=== PATIENT | female | born 1960 | race Caucasian/White ===

== ENCOUNTER 2019-02-21 11:39 | Emergency (ER) | payer OTHER, SELFPAY ==
[2019-02-21 11:45] VITALS: BP 168/81; PULSE 52; RESP 18; TEMP 36.3; O2SAT 99
[2019-02-21] MEDS: KETOROLAC 60 MG/2 ML VIAL IM (13:02)
[2019-02-21] MEDS: HYDROCODONE/ACET 5/325 TABLET 1 TAB PO (13:02)
[2019-02-21] MEDS: LIDOCAINE PATCH 1 EACH ADH..PATCH TOP (13:07)
[2019-02-21 13:55] VITALS: BP 132/73; PULSE 56; RESP 17; O2SAT 100
--- NOTE | 2019-02-21 16:14 | ED.BACK ---
HPI - Back Pain/Injury <WARREN Nolen - Last Filed: 02/21/19 16:18> General Chief Complaint: Back Pain/Injury Stated Complaint: Sciatic Pain Time Seen by Provider: 02/21/19 12:36 Source: patient Limitations: no limitations History of Present Illness HPI Narrative: The patient is a 59-year-old female nonsmoker with history of sciatica prevents with a chief complaint of sciatica pain. She states she is from out of town and is having pain on her right side. She states that she cannot take anti-inflammatories due to recent gastric surgery. She states that the pain starts in her right hip goes down to her right knee. She states is very consistent with her sciatica pain. She has been using Tylenol. She states she has been to the walk-in clinic twice, was given injection of Toradol as well as a prescription of steroids. She states she has not felt any improvement. She denies any trauma. Denies any fevers nausea vomiting or diarrhea. She states that she does not have any incontinence of bowel, incontinence of bladder or saddle anesthesia. Related Data Home Medications Medication Instructions Recorded Confirmed atenolol 25 mg tablet 25 mg PO DAILY 02/18/19 02/18/19 fluoxetine 40 mg capsule 40 mg PO DAILY 02/18/19 02/18/19 omeprazole 20 mg capsule,delayed 20 mg PO DAILY 02/18/19 02/18/19 release Previous Rx's Medication Instructions Recorded prednisone 20 mg tablet 20 mg PO DAILY 10 Days #14 tab 02/18/19 cyclobenzaprine 10 mg tablet 10 mg PO BID PRN #10 tab 02/20/19 hydrocodone-acetaminophen [[place]] 1 tab PO Q4-6H PRN #10 tab 02/21/19 lidocaine 1 patch TOP DAILY #15 each 02/21/19 Allergies Allergy/AdvReac Type Severity Reaction Status Date / Time No Known Drug Allergies Allergy Verified 02/18/19 10:41 Review of Systems <WARREN Nolen - Last Filed: 02/21/19 16:18> Review of Systems GENERAL: Denies chills, fatigue, malaise, fever, sweats. HEENT: Denies sinus pain, ear pain, sore throat, difficulty swallowing, dizziness. RESPIRATORY: Denies dyspnea, cough, wheezing, hemoptysis, sputum. CARDIOVASCULAR: Denies chest pain, palpitations, orthopnea, edema, GASTROINTESTINAL: Denies nausea, vomiting, abdominal pain, diarrhea, constipation, melena. : Denies dysuria, frequency, incontinence, hematuria, urinary retention. MUSCULOSKELETAL: See HPI SKIN: Denies rash, skin lesions, or other NEUROLOGIC: Denies weakness, headache, numbness, change in speech, confusion, seizures, incoordination. PSYCHIATRIC: No concerning psychosocial issues. 12 point review of systems is negative except for those stated above PFSH <WARREN Nolen - Last Filed: 02/21/19 16:18> Social History Smoking Status: Never smoker Social History Smoking Status: Never smoker Exam <WARREN Nolen - Last Filed: 02/21/19 16:18> Narrative Exam Narrative: GENERAL: This is a well-nourished, well-developed patient, appears uncomfortable HEAD: Atraumatic. Normocephalic. No temporal or scalp tenderness. EYES: Pupils equal round and reactive. Extraocular motions intact. No scleral icterus. No injection or drainage. ENT: Nose without bleeding, purulent drainage or septal hematoma. Throat without erythema, tonsillar hypertrophy or exudate. Uvula midline. Airway patent. NECK: Trachea midline. No JVD or lymphadenopathy. Supple, nontender, no meningeal signs. CARDIOVASCULAR: Regular rate and rhythm without murmurs, gallops, or rubs. RESPIRATORY: Clear to auscultation. Breath sounds equal bilaterally. No wheezes, rales, or rhonchi. No cough. No increased respiratory effort. No accessory muscle use. GASTROINTESTINAL: Abdomen soft, non-tender, nondistended. No hepato-splenomegaly, or palpable masses. No guarding. EXTREMITIES: No clubbing, cyanosis, or edema. No joint tenderness, effusion, or edema noted. BACK: Nontender without deformity or crepitance. No flank tenderness. No pain to CT or L-spine palpation. NEURO: AOx3. Gross cranial nerve deficit. Stable gait. Strength is equal upper and lower extremities bilaterally. SKIN: No rash or erythema. No erythema ecchymosis rash laceration or abrasion on lower back. Initial Vital Signs Initial Vital Signs: Vital Signs Temperature 97.4 F L 02/21/19 11:45 Pulse Rate 52 L 02/21/19 11:45 Respiratory Rate 18 02/21/19 11:45 Blood Pressure 168/81 H 02/21/19 11:45 Pulse Oximetry 99 02/21/19 11:45 <Carmen Causey DO - Last Filed: 02/22/19 06:12> Initial Vital Signs Initial Vital Signs: Vital Signs Temperature 97.4 F L 02/21/19 11:45 Pulse Rate 52 L 02/21/19 11:45 Respiratory Rate 18 02/21/19 11:45 Blood Pressure 168/81 H 02/21/19 11:45 Pulse Oximetry 99 02/21/19 11:45 Course <MERLE NolenBC - Last Filed: 02/21/19 16:18> Orders Ordered: Discontinued Medications Hydrocodone Bitart/Acetaminophen ([place] 5/325) 1 tab PO NOW ONE Stop: 02/21/19 12:50 Last Admin: 02/21/19 13:02 Dose: 1 tab Ketorolac Tromethamine (Toradol) 60 mg IM NOW ONE Stop: 02/21/19 12:50 Last Admin: 02/21/19 13:02 Dose: 60 mg Lidocaine (Lidoderm) 1 each TOP DAILY [facility] Last Admin: 02/21/19 13:07 Dose: 1 each Lidocaine (Lidoderm (Remove Patch)) 1 each TOP [facility] Vital Signs - 8 hr 02/21/19 11:45 02/21/19 13:55 Temperature 97.4 F L Pulse Rate 52 L 56 L Respiratory Rate 18 17 Blood Pressure 168/81 H Blood Pressure [Right Arm] 132/73 Pulse Oximetry 99 100 <Carmen Causey DO - Last Filed: 02/22/19 06:12> Orders Ordered: Discontinued Medications Hydrocodone Bitart/Acetaminophen ([place] 5/325) 1 tab PO NOW ONE Stop: 02/21/19 12:50 Last Admin: 02/21/19 13:02 Dose: 1 tab Ketorolac Tromethamine (Toradol) 60 mg IM NOW ONE Stop: 02/21/19 12:50 Last Admin: 02/21/19 13:02 Dose: 60 mg Lidocaine (Lidoderm) 1 each TOP DAILY [facility]GELA Last Admin: 02/21/19 13:07 Dose: 1 each Lidocaine (Lidoderm (Remove Patch)) 1 each TOP [facility] Vital Signs - 8 hr 02/21/19 11:45 02/21/19 13:55 Temperature 97.4 F L Pulse Rate 52 L 56 L Respiratory Rate 18 17 Blood Pressure 168/81 H Blood Pressure [Right Arm] 132/73 Pulse Oximetry 99 100 [facility] - Back Pain/Injury <CAROLA Nolen- - Last Filed: 02/21/19 16:18> [facility] Narrative Medical decision making narrative: The patient is a 59-year-old female with history of sciatica presents with a chief complaint of lower back pain and sciatic pain. She states is very consistent with her sciatica. She was given Toradol, Flexeril and [place] in the emergency department with good relief. She denies any acute symptoms such as incontinence of bowel, incontinence of bladder or saddle anesthesia. She states she will follow up with come back to the ER if she needs to. I discussed at length follow up with PCP. Elected to defer imaging at this point time as the patient has no pain to palpation of spine. Patient has no questions or concerns upon discharge and states she is comfortable managing sciatica. Discussed return precautions and follow-up. Discharge Plan Departure Patient Disposition: Home Clinical Impression: Sciatica Qualifiers: Laterality: right Qualified Code(s): M54.31 - Sciatica, right side Discharge Date/Time: 02/21/19 14:00 Interventions: ED Discharge Assessment Last Done: 02/21/19 14:19 Instructions: DI for Sciatica Activity Restrictions/Additional Instructions: I have given you prescriptions for your back pain. Please be aware the hydrocodone can be constipating and sedating. Please do not take and drive. I have also given you a prescription for pain patch. I also suggest continued use of her muscle relaxer and steroids. Please monitor for incontinence of bowel, incontinence of bladder, or numbness in your groin. Please come back to the ER for any acute concerns. Please follow up with primary care provider once you return home Prescriptions: New hydrocodone-acetaminophen [[place]] 5-325 mg tablet 1 tab PO Q4-6H PRN (Reason: pain) Qty: 10 RF: 0 lidocaine 5 % adhesive patch,medicated 1 patch TOP DAILY Qty: 15 RF: 0 No Action cyclobenzaprine 10 mg tablet 10 mg PO BID PRN (Reason: muscle spasm) Qty: 10 RF: 0 fluoxetine 40 mg capsule 40 mg PO DAILY RF: 0 atenolol 25 mg tablet 25 mg PO DAILY RF: 0 omeprazole 20 mg capsule,delayed release(DR/EC) 20 mg PO DAILY RF: 0 prednisone 20 mg tablet 20 mg PO DAILY 10 Days Qty: 14 RF: 0 <Carmen Causey DO - Last Filed: 02/22/19 06:12> Cosign ED Attending Cosignature Attestation: I was immediately available in the department for consultation. This documentation has been reviewed and I agree with assessment and plan. Supervised by Carmen Causey DO
--- NOTE | 2019-02-21 16:18 | ED_ITS ---
HPI - Back Pain/Injury <WARREN Nolen - Last Filed: 02/21/19 16:18> General Chief Complaint: Back Pain/Injury Stated Complaint: Sciatic Pain Time Seen by Provider: 02/21/19 12:36 Source: patient Limitations: no limitations History of Present Illness HPI Narrative: The patient is a 59-year-old female nonsmoker with history of sciatica prevents with a chief complaint of sciatica pain. She states she is from out of town and is having pain on her right side. She states that she cannot take anti-inflammatories due to recent gastric surgery. She states that the pain starts in her right hip goes down to her right knee. She states is very consistent with her sciatica pain. She has been using Tylenol. She states she has been to the walk-in clinic twice, was given injection of Toradol as well as a prescription of steroids. She states she has not felt any improvement. She denies any trauma. Denies any fevers nausea vomiting or diarrhea. She states that she does not have any incontinence of bowel, incontinence of bladder or saddle anesthesia. Related Data Home Medications Medication Instructions Recorded Confirmed atenolol 25 mg tablet 25 mg PO DAILY 02/18/19 02/18/19 fluoxetine 40 mg capsule 40 mg PO DAILY 02/18/19 02/18/19 omeprazole 20 mg capsule,delayed 20 mg PO DAILY 02/18/19 02/18/19 release Previous Rx's Medication Instructions Recorded prednisone 20 mg tablet 20 mg PO DAILY 10 Days #14 tab 02/18/19 cyclobenzaprine 10 mg tablet 10 mg PO BID PRN #10 tab 02/20/19 hydrocodone-acetaminophen [[place]] 1 tab PO Q4-6H PRN #10 tab 02/21/19 lidocaine 1 patch TOP DAILY #15 each 02/21/19 Allergies Allergy/AdvReac Type Severity Reaction Status Date / Time No Known Drug Allergies Allergy Verified 02/18/19 10:41 Review of Systems <WARREN Nolen - Last Filed: 02/21/19 16:18> Review of Systems GENERAL: Denies chills, fatigue, malaise, fever, sweats. HEENT: Denies sinus pain, ear pain, sore throat, difficulty swallowing, dizziness. RESPIRATORY: Denies dyspnea, cough, wheezing, hemoptysis, sputum. CARDIOVASCULAR: Denies chest pain, palpitations, orthopnea, edema, GASTROINTESTINAL: Denies nausea, vomiting, abdominal pain, diarrhea, constipation, melena. : Denies dysuria, frequency, incontinence, hematuria, urinary retention. MUSCULOSKELETAL: See HPI SKIN: Denies rash, skin lesions, or other NEUROLOGIC: Denies weakness, headache, numbness, change in speech, confusion, seizures, incoordination. PSYCHIATRIC: No concerning psychosocial issues. 12 point review of systems is negative except for those stated above PFSH <WARREN Nolen - Last Filed: 02/21/19 16:18> Social History Smoking Status: Never smoker Social History Smoking Status: Never smoker Exam <WARREN Nolen - Last Filed: 02/21/19 16:18> Narrative Exam Narrative: GENERAL: This is a well-nourished, well-developed patient, appears uncomfortable HEAD: Atraumatic. Normocephalic. No temporal or scalp tenderness. EYES: Pupils equal round and reactive. Extraocular motions intact. No scleral icterus. No injection or drainage. ENT: Nose without bleeding, purulent drainage or septal hematoma. Throat without erythema, tonsillar hypertrophy or exudate. Uvula midline. Airway patent. NECK: Trachea midline. No JVD or lymphadenopathy. Supple, nontender, no meningeal signs. CARDIOVASCULAR: Regular rate and rhythm without murmurs, gallops, or rubs. RESPIRATORY: Clear to auscultation. Breath sounds equal bilaterally. No wheezes, rales, or rhonchi. No cough. No increased respiratory effort. No accessory muscle use. GASTROINTESTINAL: Abdomen soft, non-tender, nondistended. No hepato- splenomegaly, or palpable masses. No guarding. EXTREMITIES: No clubbing, cyanosis, or edema. No joint tenderness, effusion, or edema noted. BACK: Nontender without deformity or crepitance. No flank tenderness. No pain to CT or L-spine palpation. NEURO: AOx3. Gross cranial nerve deficit. Stable gait. Strength is equal up per and lower extremities bilaterally. SKIN: No rash or erythema. No erythema ecchymosis rash laceration or abrasion on lower back. Initial Vital Signs Initial Vital Signs: Vital Signs Temperature 97.4 F L 02/21/19 11:45 Pulse Rate 52 L 02/21/19 11:45 Respiratory Rate 18 02/21/19 11:45 Blood Pressure 168/81 H 02/21/19 11:45 Pulse Oximetry 99 02/21/19 11:45 <Carmen Causey DO - Last Filed: 02/22/19 06:12> Initial Vital Signs Initial Vital Signs: Vital Signs Temperature 97.4 F L 02/21/19 11:45 Pulse Rate 52 L 02/21/19 11:45 Respiratory Rate 18 02/21/19 11:45 Blood Pressure 168/81 H 02/21/19 11:45 Pulse Oximetry 99 02/21/19 11:45 Course <MERLE NolenBC - Last Filed: 02/21/19 16:18> Orders Ordered: Discontinued Medications Hydrocodone Bitart/Acetaminophen ([place] 5/325) 1 tab PO NOW ONE Stop: 02/21/19 12:50 Last Admin: 02/21/19 13:02 Dose: 1 tab Ketorolac Tromethamine (Toradol) 60 mg IM NOW ONE Stop: 02/21/19 12:50 Last Admin: 02/21/19 13:02 Dose: 60 mg Lidocaine (Lidoderm) 1 each TOP DAILY [facility] Last Admin: 02/21/19 13:07 Dose: 1 each Lidocaine (Lidoderm (Remove Patch)) 1 each TOP BEDTIME [facility] Vital Signs - 8 hr 02/21/19 11:45 02/21/19 13:55 Temperature 97.4 F L Pulse Rate 52 L 56 L Respiratory Rate 18 17 Blood Pressure 168/81 H Blood Pressure [Right Arm] 132/73 Pulse Oximetry 99 100 <Carmen Causey DO - Last Filed: 02/22/19 06:12> Orders Ordered: Discontinued Medications Hydrocodone Bitart/Acetaminophen ([place] 5/325) 1 tab PO NOW ONE Stop: 02/21/19 12:50 Last Admin: 02/21/19 13:02 Dose: 1 tab Ketorolac Tromethamine (Toradol) 60 mg IM NOW ONE Stop: 02/21/19 12:50 Last Admin: 02/21/19 13:02 Dose: 60 mg Lidocaine (Lidoderm) 1 each TOP DAILY [facility] Last Admin: 02/21/19 13:07 Dose: 1 each Lidocaine (Lidoderm (Remove Patch)) 1 each TOP BEDTIME [facility] Vital Signs - 8 hr 02/21/19 11:45 02/21/19 13:55 Temperature 97.4 F L Pulse Rate 52 L 56 L Respiratory Rate 18 17 Blood Pressure 168/81 H Blood Pressure [Right Arm] 132/73 Pulse Oximetry 99 100 [facility] - Back Pain/Injury <CAROLA Nolen- - Last Filed: 02/21/19 16:18> [facility] Narrative Medical decision making narrative: The patient is a 59-year-old female with history of sciatica presents with a chief complaint of lower back pain and sciatic pain. She states is very consistent with her sciatica. She was given Toradol, Flexeril and [place] in the emergency department with good relief. She denies any acute symptoms such as incontinence of bowel, incontinence of bladder or saddle anesthesia. She states she will follow up with come back to the ER if she needs to. I discussed at length follow up with PCP. Elected to defer imaging at this point time as the patient has no pain to palpation of spine. Patient has no questions or concerns upon discharge and states she is comfortable managing sciatica. Discussed return precautions and follow-up. Discharge Plan Departure Patient Disposition: Home Clinical Impression: Sciatica Qualifiers: Laterality: right Qualified Code(s): M54.31 - Sciatica, right side Discharge Date/Time: 02/21/19 14:00 Interventions: ED Discharge Assessment Last Done: 02/21/19 14:19 Instructions: DI for Sciatica Activity Restrictions/Additional Instructions: I have given you prescriptions for your back pain. Please be aware the hydrocodone can be constipating and sedating. Please do not take and drive. I have also given you a prescription for pain patch. I also suggest continued use of her muscle relaxer and steroids. Please monitor for incontinence of bowel, incontinence of bladder, or numbness in your groin. Please come back to the ER for any acute concerns. Please follow up with primary care provider once you return home Prescriptions: New hydrocodone-acetaminophen [[place]] 5-325 mg tablet 1 tab PO Q4-6H PRN (Reason: pain) Qty: 10 RF: 0 lidocaine 5 % adhesive patch,medicated 1 patch TOP DAILY Qty: 15 RF: 0 No Action cyclobenzaprine 10 mg tablet 10 mg PO BID PRN (Reason: muscle spasm) Qty: 10 RF: 0 fluoxetine 40 mg capsule 40 mg PO DAILY RF: 0 atenolol 25 mg tablet 25 mg PO DAILY RF: 0 omeprazole 20 mg capsule,delayed release(DR/EC) 20 mg PO DAILY RF: 0 prednisone 20 mg tablet 20 mg PO DAILY 10 Days Qty: 14 RF: 0 <Carmen Causey DO - Last Filed: 02/22/19 06:12> Cosign ED Attending Cosignature Attestation: I was immediately available in the department for consultation. This documentation has been reviewed and I agree with assessment and plan. Supervised by Carmen Causey DO
== END 2019-02-21 14:00 | disposition home or self-care (01) ==
PROVIDERS: Emergency Provider Nurse Practitioner Family
DX: M54.31 Sciatica, right side (principal)
CPT/HCPCS: 96372; 99282; 99283; J1885